=== PATIENT | male | born 1970 | race Caucasian/White ===

== ENCOUNTER 2021-06-14 00:45 | Emergency (ER) | payer SELFPAY ==
[~2021-06-14] VITALS: Ht 157.5 cm; Wt 55.0 kg
[2021-06-14 00:49] VITALS: BP 130/80
[2021-06-14] MEDS ORDERED: LIDOCAINE HCL/EPINEPHRINE 1%-EPI 1:100,000 20 ML VIAL INFIL ONE (01:45)
[2021-06-14] MEDS ORDERED: BACITRACIN ZINC OINT UDPKT TOP ONE (01:45)
[2021-06-14] MEDS ORDERED: TETANUS, DIPHTHERIA, PERTUSSIS VAC/PF 0.5ML (>10YR OLD) IM ONE (01:45)
== END 2021-06-14 03:17 | disposition home or self-care (01) ==
LOC: ER 00:45
DX: S01.81XA Laceration without foreign body of other part of head, initial encounter (principal); V18.0XXA Pedal cycle driver injured in noncollision transport accident in nontraffic accident, initial encounter; Y93.55 Activity, bike riding; Y92.488 Other paved roadways as the place of occurrence of the external cause
CPT/HCPCS: 12013; 99282

== ENCOUNTER 2021-06-17 11:41 | Emergency (ER) | payer SELFPAY ==
[~2021-06-17] VITALS: Ht 154.9 cm; Wt 54.0 kg
[2021-06-17 12:03] VITALS: BP 158/87
== END 2021-06-17 12:10 | disposition home or self-care (01) ==
LOC: ER 12:05
DX: Z48.02 Encounter for removal of sutures (principal); R51.9 Headache, unspecified
CPT/HCPCS: 99281

== ENCOUNTER 2021-07-02 09:31 | Emergency (ER) | payer SELFPAY ==
[~2021-07-02] VITALS: Ht 157.5 cm; Wt 54.0 kg
[2021-07-02 09:40] VITALS: BP 133/77
[2021-07-02] MEDS ORDERED: BO1 TP (10:33)
== END 2021-07-02 10:30 | disposition home or self-care (01) ==
LOC: ER 09:31
DX: Z48.02 Encounter for removal of sutures (principal)
CPT/HCPCS: 99282